=== PATIENT | male | born 1980 | race Caucasian/White ===

== ENCOUNTER → 2022-11-21 10:06 | Outpatient (CLI) | payer OTHER, SELFPAY ==
--- NOTE | 2022-11-21 10:55 | XR_ITS ---
FINAL REPORT TECHNIQUE: Chest PA & Lateral CLINICAL HISTORY: UPPER RESPITORY INFECTION FINDINGS: 2 views of the chest were performed. The heart size is normal. The mediastinum is within normal limits. There is no acute cardiopulmonary process. There are no pleural effusions. There is no pneumothorax. The bony thorax appears intact. IMPRESSION: No acute cardiopulmonary process. Reviewed, Interpreted and Dictated by Tyson Hinkle MD Transcribed by Luz Elena Hightower Authenticated and [facility]
== END ==
PROVIDERS: Visit Provider Chiropractor
DX: J06.9 Acute upper respiratory infection, unspecified (principal)
CPT/HCPCS: 71046; 94060

== ENCOUNTER 2024-02-22 18:50 | Emergency (ER) | payer OTHER, SELFPAY ==
[2024-02-22 18:52] VITALS: BP 129/73; PULSE 74; RESP 16; TEMP 37; O2SAT 96; BMI 29.5
--- NOTE | 2024-02-22 19:10 | XR_ITS ---
PROCEDURE INFORMATION: Exam: XR Chest Exam date and time: 02/22/2024 7:04 PM Age: 43 years old Clinical indication: Other: RT clavicle and ribs pain; Prior surgery; Surgery date: <1 month; Surgery type: Sleep apnea implant TECHNIQUE: Imaging protocol: Radiologic exam of the chest. Views: 2 views. COMPARISON: CR XR CHEST 2V 11/21/2022 11:01 AM FINDINGS: Lungs: In the left lung base there are interstitial densities which could reflect atelectasis versus pneumonia. Pleural spaces: Unremarkable. No pleural effusion. No pneumothorax. Heart/Mediastinum: Unremarkable. No cardiomegaly. Bones/joints: Unremarkable. Battery power implant overlying the right chest. IMPRESSION: In the left lung base there are interstitial densities which could reflect atelectasis versus pneumonia.
--- NOTE | 2024-02-22 19:12 | PC.NURSE ---
pt going to RAD
--- NOTE | 2024-02-22 20:09 | ED_ITS ---
Discharge Plan Disposition Patient Disposition: Home, Self-Care Condition: Good Prescriptions Prescriptions: New Xarelto DVT-PE Treat 30d Start 15 mg (42)- 20 mg (9) tablets,dose pack See Rx Instructions .ROUTE .COMPLEX Qty: 51 0RF Rx Instructions: take one-15 mg tablet twice daily for 21 days, then one-20 mg tablet once daily; must take with meal/food Referrals Follow up/Referrals: Ck Prabhakar MD [Staff Physician] - See instructions Yessy Garcia [Primary Care Provider] - See instructions Activity Restrictions/Add. Instructions Additional Instructions/Restrictions: You were evaluated in the emergency department today. You were diagnosed with bilateral blood clots or pulmonary emboli in your lungs. We are starting you on an anticoagulant for this. Please picker/puller the prescription and take the medication as prescribed. Please follow-up very closely with your primary care provider. They can decide whether or not they need to continue or discontinue this medication. I have also provided you with information for follow-up with cardiology, Dr. Prabhakar, if you choose to, as he does help manage blood clots. I also recommend follow up with the team that placed your implant. Please return to the ED right away for any new or worsening symptoms. Clinical Impressions Clinical Impression: Pulmonary embolism, bilateral Instructions Patient Instructions: DI for Pulmonary Embolism Discharge ED Provider: Huong Ramirez General Adult HPI General Chief complaint: Extremity Injury, Upper Stated complaint: left shoulder and rib pain, no accident Time Seen by Provider: 02/22/24 19:22 Mode of Arrival: Ambulatory Source of Information: Patient Limitations: No Limitations Description of Symptoms (Recalled from ER Triage Doc. by RN): pt states he had a transmitter placed 3 weeks ago for sleep apena. today woke up with rt side clavicle and rib pain. pt denies any accdient/ trauma History of Present Illness HPI narrative: This patient is a 43-year-old male with a history of obstructive sleep apnea presenting to the emergency department with concern that he has left-sided chest wall pain. He notes that his pain is worse under his left collarbone and his left lower chest. It is worse when he takes a deep breath. He notes has been sleeping on that side to try and offset sleeping on his right side given that he had the implant placed. No significant accident or injury noted. No significant shortness of breath. No history of blood clots, clotting disorders, calf pain or swelling, or other concerns. No fevers, cough, or congestion. It does seem to worsen slightly with reaching across his chest. Related Data Previous Rx's Medication Instructions Recorded rivaroxaban 15 mg (42)-20 mg (9) See Rx Instructions PO .COMPLEX 02/22/24 tablets in a starter pack (Xarelto #51 tabs DVT-PE Treatment 30-Day Starter) Allergies Allergy/AdvReac Type Severity Reaction Status Date / Time No Known Allergies Allergy Verified 02/22/24 19:09 [facility] Disclaimer: The information contained in this section may have been updated after the patient was seen, as this information can be updated by other users. Social History Smoking Status: Never smoker alcohol intake: never current occupational status: employed Travel in the last 8 weeks: None ROS Obtained: Yes All systems reviewed & no additional complaints except as documented Physical Exam General General appearance: alert and in no apparent distress Head Head exam: atraumatic and normocephalic Eye Eye exam: Present normal appearance, PERRL and EOMI ENT ENT exam: Present normal exam, normal oropharynx, mucous membranes moist and normal external ear exam Neck Neck exam: Present normal inspection, full ROM and trachea midline; Absent tenderness Chest Chest inspection: Present normal inspection and symmetric chest wall rise; Absent tenderness Respiratory Respiratory exam: Present normal lung sounds bilaterally; Absent respiratory distress, wheezes, stridor or accessory muscle use Cardiovascular Cardiovascular exam: Present regular rate and normal rhythm Abdominal Exam Abdominal exam: Present soft; Absent distention, tenderness or guarding Extremities Exam Extremities exam: Present normal inspection, full ROM and normal capillary refill; Absent tenderness or edema Back Exam Back exam: Present normal inspection and full ROM; Absent tenderness Neurological Exam Neurological exam: Present alert, oriented X3, CN II-XII intact and normal gait; Absent motor sensory deficit Psychiatric Psychiatric exam: Present normal affect and normal mood Skin Skin exam: Present warm and dry Medical Decision Making Medical Records Medical records reviewed: Yes I reviewed the patient's medical records. Andrew Inquiry Pt receiving controlled substance: No Vital Signs: 02/22/24 18:52 02/22/24 23:14 Temperature 98.6 F 97.8 F Temperature Source Oral Pulse Rate 78 Pulse Rate [Right] 74 Respiratory Rate 16 18 Blood Pressure 146/73 H Blood Pressure [Right Arm] 129/73 Blood Pressure Mean [Right Arm] 91 02 Sat by Pulse Oximetry 96 Oxygen Delivery Method Room Air Lab Data Lab results reviewed: Yes I reviewed the patient's lab results. Lab Results 02/22/24 20:23: WBC 8.4, RBC 5.02, Hgb 15.6, Hct 47.1, MCV 93.9, MCH 31.1, MCHC 33.1, RDW 13.5, Plt Count 342, MPV 7.2 L, Neut % (Auto) 74.6, Lymph % (Auto) 18.1, [place] % (Auto) 5.9, Eos % (Auto) 0.8, Baso % (Auto) 0.7, Neut # (Auto) 6.3, Lymph # (Auto) 1.5, [place] # (Auto) 0.5, Eos # (Auto) 0.1, Baso # (Auto) 0.1, PT 10.9, INR 1.01, APTT 29.6, D-Dimer 1.14 H, Sodium 141, Potassium 4.0, Chloride 105, Carbon Dioxide 29, Anion Gap 11.0, BUN 14, Creatinine 1.00, Estimated Creat Clear 125, Estimated GFR 82, Est GFR ( Amer) 100, Glucose 94, Calcium 9.2, Total Bilirubin 0.4, AST 35, ALT 25, Alkaline Phosphatase 74, Total Protein 7.4, Albumin 4.2, Globulin 3.2, Albumin/Globulin Ratio 1.3 02/22/24 20:23 02/22/24 20:23 Orders (Tests/Meds): ED MEDICATIONS Discontinued Medications Generic Name Dose Route Start Last Admin Trade Name Freq PRN Reason Stop Dose Admin Iopamidol 70 ml 02/22/24 21:25 02/22/24 21:26 Iopamidol-370 (76%);100ml Bottle IV 02/22/24 21:26 70 ml ONCE ONE Administration Ketorolac Tromethamine 15 mg 02/22/24 19:54 02/22/24 20:23 Ketorolac 30mg/Ml Vial IV 02/22/24 19:55 15 mg ONCE ONE Administration Rivaroxaban 1 packet 02/22/24 22:37 02/22/24 22:43 Xarelto 15mg Thp 1 Packet Lon PO 02/22/24 22:38 1 packet ONCE ONE Administration Sodium Chloride 50 ml 02/22/24 21:25 02/22/24 21:26 0.9 % Sodium Chloride 50 Ml Vial IV 02/22/24 21:26 50 ml ONCE ONE Administration Sodium Chloride 10 ml 02/22/24 21:25 02/22/24 21:26 Sodium Chloride 0.9% 10ml Syr (Rad Only) IV 02/22/24 21:26 10 ml ONCE ONE Administration ORDERS Category Date Time Status CT angio chest PE protocol Stat Cat Scan 02/22/24 21:06 Completed Chest XR 2 view (NOT portable) [XR chest 2V] Stat Exams 02/22/24 19:10 Completed POCUS Point of Care (ER Only) Stat Exams 02/22/24 22:12 Taken Activated Partial Thrombo Time Stat Lab 02/22/24 20:23 Completed CBC w/Auto Diff [Complete Blood Count Auto Diff] Stat Lab 02/22/24 20:23 Completed CMP [Comprehensive Metabolic Panel] Stat Lab 02/22/24 20:23 Completed D-Dimer Stat Lab 02/22/24 20:23 Completed Prothrombin Time INR Stat Lab 02/22/24 20:23 Completed ECG Data Tracing #1: I reviewed this ECG and interpreted as documented below: Normal sinus rhythm with a ventricular rate of [address] changes concerning for ischemia. Normal axis and intervals. ECG initial impression date: 02/22/24 ECG initial impression time: 20:55 Medical Decision Narrative: In summary, this patient is a 43-year-old male presenting to the Emergency Department for evaluation of left-sided pleuritic chest pain. Differential diagnoses considered include but are not limited to costochondritis, musculoskeletal strain/sprain, pleurisy, PE, complication of device implantation placed. Ruling out the most morbid conditions drove assessment. On exam, the patient is well-appearing. Vitals are normal on cardiac telemetry. Given the nature of his pain and the fact that he is not sleeping on that side more often than usual, I feel his pain is likely musculoskeletal. Workup included CBC, CMP, D-dimer, chest x-ray, and EKG. He was given IV Toradol. I independently interpreted x-ray prior to the radiologist read and noted atelectasis on the left without other acutely concerning abnormalities. Please see their read for final interpretation. Labs were obtained that demonstrated elevated D-dimer without other acutely concerning abnormalities. EKG obtained is reassuring. Given this, CT PE was ordered. CT PE demonstrates bilateral pulmonary emboli without evidence of right heart strain. I had an interactive discussion with the radiologist to confirm this. I performed a bedside cardiac ultrasound which again did not demonstrate any significant right heart strain. On reassessment, the patient is resting comfortably with normal vital signs on cardiac telemetry. No increased work of breathing. Given that he has normal vitals, no respiratory difficulty, and no heart strain, I feel that he is appropriate for discharge home with oral anticoagulation. He was given Xarelto starter pack here. Prescription for Xarelto was sent to the pharmacy. He was given instructions for very close follow-up as an outpatient as well as instructions for strict return precautions. He expressed understanding and agreement. The patient was discharged in stable condition after all questions were answered. Procedures Limited Ultrasound Findings:: Limited cardiac ultrasound Indication: Chest pain Identified cardiac views: [-Cardiac parasternal long axis] [-Cardiac parasternal short axis] [-Cardiac apical four-chamber] Findings: Cardiac activity present. Normal gross wall motion. No significant pericardial effusion. No evidence of right heart strain. Impression: -[From above] Images were saved to permanent archive The study was technically adequate CPT: 28032 This study was performed by me, and I personally interpreted all images/videos. Based on my clinical judgement, these images were adequate and did not necessitate further imaging. Critical Care Critical Care Time Critical Care Time: No
[2024-02-22] MEDS: KETOROLAC 30MG/ML VIAL 15 MG IV (20:23)
[2024-02-22 20:37] LABS: Basophils # 0.1 K/mm3 (0-0.2); Basophils % 0.7 % (0.1-2.0); Eosinophils # 0.1 K/mm3 (0.0-0.4); Eosinophils % 0.8 % (0.1-12.0); Hematocrit 47.1 % (42.0-52.0); Hemoglobin 15.6 g/dL (14.1-18.0); Lymphocytes # 1.5 K/mm3 (0.7-4.5); Lymphocytes % 18.1 % (10-50); Mean Corpuscular HGB Conc 33.1 g/dL (31.8-35.4); Mean Corpuscular Hemoglobin 31.1 pg (27.0-31.2); Mean Corpuscular Volume 93.9 fl (80-94); Mean Platelet Volume 7.2 fl (7.4-10.4); Monocytes # 0.5 K/mm3 (0.1-1.0); Monocytes % 5.9 % (1.7-9.3); Neutrophils # 6.3 K/mm3 (1.8-7.8); Neutrophils % 74.6 % (37.0-80.0); Platelet Count 342 K/mm3 (142-424); Red Blood Count 5.02 M/mm3 (4.60-6.20); Red Cell Distribution Width 13.5 % (11.5-17.5); White Blood Count 8.4 K/mm3 (4.8-10.8)
[2024-02-22 20:49] LABS: Alanine Aminotransferase 25 U/L (12-78); Albumin Level 4.2 g/dl (3.5-5.0); Albumin/Globulin Ratio 1.3 (1.1-1.8); Alkaline Phosphatase 74 U/L (38-126); Aspartate Amino Transferase 35 U/L (17-59); Bilirubin,Total 0.4 mg/dl (0.2-1.3); Blood Urea Nitrogen 14 mg/dl (9-20); Calcium 9.2 mg/dl (8.4-10.2); Carbon Dioxide 29 mmol/L (22.0-30.0); Chloride 105 mmol/L (98-107); Creatinine Clearance Estimated 125 mL/min (50-200); Estimated Glomerular Filt Rate 82 ml/min (>60); GFR (African American) 100 ML/MIN (>60); Globulin 3.2 g/dL (1.3-3.2); Glucose 94 mg/dl (74-100); Sodium 141 mmol/L (136-145); Total Protein,Serum 7.4 g/dl (6.3-8.2)
[2024-02-22 20:53] LABS: D-Dimer 1.14 ug/mL (0.0-0.5)
--- NOTE | 2024-02-22 20:55 | ECG_ITS ---
APPROVED REPORT Exam: Resting ECG HR:66 bpm ECG Measurements Heart Rate 66 AXES AZ 171 P 55 QRSd 85 QRS 1 QT 371 T -27 QTc 385 Conclusion SINUS RHYTHM NONSPECIFIC ST & T-WAVE ABNORMALITY BORDERLINE ECG Electronically signed by : NATALIE RITTER, 02/23/2024 00:23:04
--- NOTE | 2024-02-22 21:06 | CT_ITS ---
PROCEDURE INFORMATION: Exam: CTA Chest With Contrast Exam date and time: 02/22/2024 9:15 PM Age: 43 years old Clinical indication: Pain; Left-sided; Additional info: Pleuritic L chest pain TECHNIQUE: Imaging protocol: Computed tomographic angiography of the chest with contrast. Exam focused on the arteries. 3D rendering (Not supervised by radiologist): MIP and/or 3D reconstructed images were created by the technologist. Radiation optimization: All CT scans at this facility use at least one of these dose optimization techniques: automated exposure control; mA and/or kV adjustment per patient size (includes targeted exams where dose is matched to clinical indication); or iterative reconstruction. Contrast material: ISOUVE 370; Contrast volume: 70 ml; Contrast route: INTRAVENOUS (IV); COMPARISON: CR XR CHEST 2V 02/22/2024 7:04 PM FINDINGS: Pulmonary arteries: Positive pulmonary embolism in the left lower lobe segmental subsegmental branches, right upper lobe pulmonary artery and right lower lobe segmental subsegmental branches. Aorta: Unremarkable. No aortic aneurysm. No aortic dissection. Lungs: Unremarkable. No consolidation. No masses. Pleural spaces: Unremarkable. No pneumothorax. No pleural effusion. Heart: Unremarkable. No cardiomegaly. No pericardial effusion. Lymph nodes: Unremarkable. No enlarged lymph nodes. Bones/joints: Unremarkable. No acute fracture. Soft tissues: Unremarkable. IMPRESSION: Positive bilateral pulmonary embolism. No evidence for right heart strain.
[2024-02-22] MEDS: 0.9 % SODIUM CHLORIDE 50 ML VIAL IV (21:26)
[2024-02-22] MEDS: SODIUM CHLORIDE 0.9% 10ML SYR (RAD ONLY) 10 ML IV (21:26)
[2024-02-22] MEDS: IOPAMIDOL-370 (76%);100ML BOTTLE 70 ML IV (21:26)
[2024-02-22 22:30] LABS: Activated Partial Thrombo Time 29.6 seconds (22.8-30.6); INR 1.01 (0.9-1.1); Prothrombin Time 10.9 seconds (10.1-12.5)
[2024-02-22] MEDS: XARELTO 15MG THP 1 PACKET PAK PO (22:43)
[2024-02-22 23:14] VITALS: BP 146/73; PULSE 78; RESP 18; TEMP 36.6; O2SAT 98
== END 2024-02-22 23:15 | disposition home or self-care (01) ==
PROVIDERS: Emergency Provider Emergency Medicine; PCP Family Medicine
DX: I26.99 Other pulmonary embolism without acute cor pulmonale (principal); R07.89 Other chest pain; G47.30 Sleep apnea, unspecified; Z96.89 Presence of other specified functional implants
CPT/HCPCS: 71046; 71275; 80053; 85025; 85378; 85610; 85730; 93005; 96374; 99285; J1885; Q9967

== ENCOUNTER 2024-05-10 08:11 | Outpatient (CLI) | payer OTHER, SELFPAY ==
[2024-05-10 09:15] VITALS: PULSE 52; PULSE 58
[2024-05-10] MEDS: ALBUTEROL 0.083% 2.5 MG/3 ML NEB IH (09:15)
== END 2024-05-10 23:59 | disposition home or self-care (01) ==
LOC: RT 08:13
PROVIDERS: PCP Family Medicine; Visit Provider Chiropractor
DX: J44.0 Chronic obstructive pulmonary disease with (acute) lower respiratory infection (principal); R05.3 Chronic cough
CPT/HCPCS: 94060; 94640; J7613

== ENCOUNTER 2024-07-09 06:03 | Emergency (ER) | payer OTHER, SELFPAY ==
[2024-07-09] VITALS (10 sets, daily range): BP systolic 119–142; BP diastolic 74–95; PULSE 48–72; RESP 12–22; TEMP 36.7–36.9; O2SAT 95–98; BMI 29.5
--- NOTE | 2024-07-09 06:01 | ECG_ITS ---
APPROVED REPORT Exam: Resting ECG HR:57 bpm ECG Measurements Heart Rate 57 AXES MA 152 P 58 QRSd 85 QRS 29 QT 389 T -16 QTc 384 Conclusion SINUS BRADYCARDIA NONSPECIFIC T-WAVE ABNORMALITY T wave inversions in lead III, aVF, no reciprocal changes, no STEMI Electronically signed by : KLAUDIA JONES, 07/10/2024 04:28:44
--- NOTE | 2024-07-09 06:04 | CT_ITS ---
PROCEDURE INFORMATION: Exam: CTA Chest With Contrast Exam date and time: 07/09/2024 6:18 AM Age: 44 years old Clinical indication: Chest wall pain; Prior surgery; Surgery date: 1-6 months; Surgery type: PT unsure of surgery, just knows he had it in January & the device breathes for him; Additional info: L chest pain, off xarelto, HX pe TECHNIQUE: Imaging protocol: Computed tomographic angiography of the chest with contrast. Exam focused on the arteries. 3D rendering (Not supervised by radiologist): MIP and/or 3D reconstructed images were created by the technologist. Radiation optimization: All CT scans at this facility use at least one of these dose optimization techniques: automated exposure control; mA and/or kV adjustment per patient size (includes targeted exams where dose is matched to clinical indication); or iterative reconstruction. Contrast material: ISOVUE 370; Contrast volume: 70 ml; Contrast route: INTRAVENOUS (IV); COMPARISON: CR XR CHEST 2V 02/22/2024 7:04 PM FINDINGS: Tubes, catheters and devices: There is an electronic device in the right anterior chest wall with lead encircling the SVC. Pulmonary arteries: Normal. No pulmonary emboli. Aorta: Unremarkable. No aortic aneurysm. No aortic dissection. Lungs: Scattered calcified granulomas right lung. No focal consolidation. Pleural spaces: Unremarkable. No pneumothorax. No pleural effusion. Heart: Unremarkable. No cardiomegaly. No pericardial effusion. Coronary arteries: No coronary artery calcifications. Lymph nodes: Calcified right paratracheal lymph node. Bones/joints: Unremarkable. No acute fracture. Soft tissues: Fat density anterior to the liver extending adjacent to the right heart, likely Bochdalek's hernia. IMPRESSION: 1. No pulmonary emboli. 2. Evidence of prior granulomatous disease.
--- NOTE | 2024-07-09 06:05 | [facility].EDCP ---
Discharge Plan Disposition Chief Complaint: Chest Pain Prescriptions Prescriptions: No Action Xarelto DVT-PE Treat 30d Start 15 mg (42)- 20 mg (9) tablets,dose pack See Rx Instructions .ROUTE .COMPLEX Qty: 51 0RF Rx Instructions: take one-15 mg tablet twice daily for 21 days, then one-20 mg tablet once daily; must take with meal/food Referrals Follow up/Referrals: Provider,Referral, MD [Primary Care Provider] - See instructions Print Language Print Language: Citizen Of [place] Discharge ED Provider: Pranay Guzmán General Chief Complaint: Chest Pain Stated Complaint: chest pain Time Seen by Provider: 07/09/24 06:04 History of Present Illness HPI narrative: 44-year-old male with history of depression, pulmonary embolism presents to the ER with left-sided chest pain for the last 2 to 3 days. Patient admits he has only been partially compliant with his Xarelto stating he is only taking it between one third and one half of the time. He also states he is currently off his antidepressants because he does not need them . Patient states he does not have suicidal or homicidal ideation. Patient reports his pain in the left chest is worse with deep breathing, he does not feel short of breath, the pain does not radiate, he has no headache, dizziness, numbness, tingling, weakness, nausea, vomiting, abdominal pain, diarrhea, constipation, dysuria, hematuria, or other symptoms of being ill. He states his symptoms are similar to previous PE. Patient states he got a sleep apnea implant in the right chest and 2 weeks later developed PE. He does not have any swelling in the feet or legs, no tenderness of the calves. No recent long distance travel. Related Data Previous Rx's ?Medication ?Instructions ?Recorded rivaroxaban 15 mg (42)-20 mg (9) See Rx Instructions PO .COMPLEX 02/22/24 tablets in a starter pack (Xarelto #51 tabs DVT-PE Treatment 30-Day Starter) Allergies Allergy/AdvReac Type Severity Reaction Status Date / Time No Known Allergies Allergy Verified 02/22/24 19:09 [facility] Disclaimer: The information contained in this section may have been updated after the patient was seen, as this information can be updated by other users. Social History (Updated 02/23/24 @ 00:13 by Huong Ramirez DO) Smoking Status: Never smoker alcohol intake: never current occupational status: employed Travel in the last 8 weeks: None ROS Obtained: Yes Systems reviewed as appropriate & no additional complaints except as documented ROS per HPI Physical Exam General General appearance: alert and in no apparent distress Head Head exam: atraumatic and normocephalic Eye Eye exam: Present PERRL and EOMI ENT ENT exam: Present mucous membranes moist Neck Neck exam: Present normal inspection and full ROM Chest Chest inspection: Present symmetric chest wall rise; Absent tenderness Respiratory Respiratory exam: Present normal lung sounds bilaterally; Absent respiratory distress, wheezes or stridor Cardiovascular Cardiovascular exam: Present regular rate and normal rhythm Abdominal Exam Abdominal exam: Present soft; Absent distention or tenderness Extremities Exam Extremities exam: Present full ROM; Absent edema or calf tenderness Neurological Exam Neurological exam: Present alert and oriented X3; Absent motor sensory deficit Psychiatric Psychiatric exam: Present normal affect and normal mood; Absent homicidal ideation or suicidal ideation Skin Skin exam: Present warm and dry HEART Score HEART Score HEART Score assessment performed?: No Critical Care Critical Care Time Critical Care Time: No Medical Decision Making Medical Records Medical records reviewed: Yes I reviewed the patient's medical records. MR Comment: Review of CTA PE from January patient had bilateral pulmonary emboli, segmental and subsegmental. Andrew Inquiry Pt receiving controlled substance: No Vital Signs Vital Signs: 07/09/24 06:04 07/09/24 06:07 07/09/24 06:10 Temperature 98.5 F Temperature Source Oral Pulse Rate 59 L 57 L Pulse Rate [Right Brachial] 57 L Respiratory Rate 16 22 Blood Pressure Blood Pressure [Right Arm] 141/85 H Blood Pressure Mean [Right Arm] 103 Blood Pressure Source [Right Arm] Automatic Cuff 02 Sat by Pulse Oximetry 96 96 Oxygen Delivery Method Room Air 07/09/24 06:16 07/09/24 06:34 Temperature Temperature Source Pulse Rate 69 72 Pulse Rate [Right Brachial] Respiratory Rate 12 17 Blood Pressure 119/74 133/86 Blood Pressure [Right Arm] Blood Pressure Mean [Right Arm] Blood Pressure Source [Right Arm] 02 Sat by Pulse Oximetry 98 96 Oxygen Delivery Method Lab Data Labs: Lab Results 07/09/24 06:07: WBC 9.2, RBC 5.40, Hgb 16.6, Hct 48.9, MCV 90.6, MCH 30.8, MCHC 34.0, RDW 13.5, Plt Count 365, MPV 7.1 L, Neut % (Auto) 62.7, Lymph % (Auto) 28.4, [place] % (Auto) 7.0, Eos % (Auto) 1.1, Baso % (Auto) 0.8, Neut # (Auto) 5.8, Lymph # (Auto) 2.6, [place] # (Auto) 0.6, Eos # (Auto) 0.1, Baso # (Auto) 0.1, PT 10.9, INR 0.97, APTT 26.9 07/09/24 06:07 Response Orders (Tests/Meds): ED MEDICATIONS Generic Name Dose Route Start Last Admin Trade Name Freq PRN Reason Stop Dose Admin Sodium Chloride 10 ml 07/09/24 06:35 07/09/24 06:37 Sodium Chloride 0.9% 10ml Syr (Rad Only) IV 08/08/24 06:34 10 ml NEEDED PRN Administration Maintain IV Site Discontinued Medications Generic Name Dose Route Start Last Admin Trade Name Freq PRN Reason Stop Dose Admin Iopamidol 70 ml 07/09/24 06:35 07/09/24 06:37 Iopamidol-370 (76%);100ml Bottle IV 07/09/24 06:36 70 ml ONCE ONE Administration Sodium Chloride 50 ml 07/09/24 06:35 07/09/24 06:36 0.9 % Sodium Chloride 50 Ml Vial IV 07/09/24 06:36 50 ml ONCE ONE Administration ORDERS Category Date Time Status CT angio chest PE protocol Stat Cat Scan 07/09/24 06:04 Taken CBC w/Auto Diff [Complete Blood Count Auto Diff] Stat Lab 07/09/24 06:07 Completed CMP [Comprehensive Metabolic Panel] Stat Lab 07/09/24 06:07 Received HIV (1&2) Antibody Rapid Stat Lab 07/09/24 06:07 Received Hep C Ab with Reflex to RNA Stat Lab 07/09/24 06:07 Received PT INR [Prothrombin Time INR] Stat Lab 07/09/24 06:07 Completed PTT [Activated Partial Thrombo Time] Stat Lab 07/09/24 06:07 Completed Trop I [Troponin I] Stat Lab 07/09/24 06:07 Received Troponin I Q3H Lab 07/09/24 09:15 Ordered Troponin I Q3H Lab 07/09/24 12:15 Ordered MDM Narrative Medical Decision Narrative: In summary, this 44-year-old male presents to the emergency department today with left-sided chest pain without radiation and similar to previous PE in the setting of patient having PEs in the past and being noncompliant with his Xarelto which is a comorbidity of current condition. On initial evaluation patient is hemodynamically stable, afebrile, saturating well on room air, chest pain is not reproducible with palpation and overall cardiopulmonary exam is reassuring with no leg swelling, edema, or calf swelling or tenderness. Differential diagnosis includes but is not limited to ACS, PE, electrolyte abnormality, I considered esophageal spasm, pneumothorax, pneumonia. Obviously high suspicion for PE since he is noncompliant with his anticoagulation and has history of bilateral segmental and subsegmental PE.. Based on these concerns, I ordered serum labs, CT imaging, cardiac workup. ECG personally interpreted demonstrates sinus bradycardia, rate 57, normal axis, normal IA and QTc, patient does have isolated T wave inversions in leads III and aVF, nonspecific, no STEMI. I reviewed ECG from patient's previous visit to our ER when he had PE and he had Q waves in lead III as well as T wave inversions in lead III and aVF. He does not have Q waves in lead III at this time. Patient received [] for treatment. Labs personally reviewed demonstrate no leukocytosis or anemia, normal PT/INR and APTT. On personal interpretation of CTA PE, patient does not have saddle PE, however I believe I am appreciating filling defects in segmental areas of the bilateral lungs with some distal filling. Radiology read pending at the time of physician handoff. Patient handed off to Dr. Perez at physician shift change for further management and disposition.
--- NOTE | 2024-07-09 06:22 | PC.NURSE ---
Pt to xray via wheelchair
[2024-07-09 06:27] LABS: Basophils # 0.1 K/mm3 (0-0.2); Basophils % 0.8 % (0.1-2.0); Eosinophils # 0.1 K/mm3 (0.0-0.4); Eosinophils % 1.1 % (0.1-12.0); Hematocrit 48.9 % (42.0-52.0); Hemoglobin 16.6 g/dL (14.1-18.0); Lymphocytes # 2.6 K/mm3 (0.7-4.5); Lymphocytes % 28.4 % (10-50); Mean Corpuscular Hemoglobin 30.8 pg (27.0-31.2); Mean Corpuscular Volume 90.6 fl (80-94); Mean Platelet Volume 7.1 fl (7.4-10.4); Monocytes # 0.6 K/mm3 (0.1-1.0); Neutrophils # 5.8 K/mm3 (1.8-7.8); Neutrophils % 62.7 % (37.0-80.0); Platelet Count 365 K/mm3 (142-424); Red Cell Distribution Width 13.5 % (11.5-17.5); White Blood Count 9.2 K/mm3 (4.8-10.8)
[2024-07-09 06:33] LABS: Activated Partial Thrombo Time 26.9 seconds (22.8-30.6); INR 0.97 (0.9-1.1); Prothrombin Time 10.9 seconds (10.1-12.5)
[2024-07-09] MEDS: 0.9 % SODIUM CHLORIDE 50 ML VIAL IV (06:36)
[2024-07-09] MEDS: SODIUM CHLORIDE 0.9% 10ML SYR (RAD ONLY) 10 ML IV (06:37)
[2024-07-09] MEDS: IOPAMIDOL-370 (76%);100ML BOTTLE 70 ML IV (06:37)
--- NOTE | 2024-07-09 07:05 | [facility].EDCP ---
Discharge Plan Disposition Patient Disposition: Home, Self-Care Condition: Good Chief Complaint: Chest Pain Prescriptions Prescriptions: No Action Xarelto DVT-PE Treat 30d Start 15 mg (42)- 20 mg (9) tablets,dose pack See Rx Instructions .ROUTE .COMPLEX Qty: 51 0RF Rx Instructions: take one-15 mg tablet twice daily for 21 days, then one-20 mg tablet once daily; must take with meal/food Referrals Follow up/Referrals: Provider,Referral, MD [Primary Care Provider] - See instructions Clinical Impressions Clinical Impression: Chest pain Instructions Patient Instructions: DI for Chronic Pain -- Adult Print Language Print Language: Luxembourgish Discharge ED Provider: Dawna Perez General Chief Complaint: Chest Pain Stated Complaint: chest pain Time Seen by Provider: 07/09/24 06:04 Mode of Arrival: Ambulatory Source of Information: Patient Limitations: No Limitations Description of Symptoms (Recalled from ER Triage Doc. by RN): Pt states he has hx of PE in January Not taking Xarelto as prescribed. Started having chest pain for lat 2 days in L upper chest. Pain 3 on 1-10 scale. Related Data Previous Rx's ?Medication ?Instructions ?Recorded rivaroxaban 15 mg (42)-20 mg (9) See Rx Instructions PO .COMPLEX 02/22/24 tablets in a starter pack (Xarelto #51 tabs DVT-PE Treatment 30-Day Starter) Allergies Allergy/AdvReac Type Severity Reaction Status Date / Time No Known Allergies Allergy Verified 02/22/24 19:09 [facility] Disclaimer: The information contained in this section may have been updated after the patient was seen, as this information can be updated by other users. Social History (Updated 02/23/24 @ 00:13 by Huong Ramirez DO) Smoking Status: Never smoker alcohol intake: never current occupational status: employed Travel in the last 8 weeks: None ROS Obtained: Yes All systems reviewed & no additional complaints except as documented Physical Exam General General appearance: alert and in no apparent distress Respiratory Respiratory exam: Present normal lung sounds bilaterally Cardiovascular Cardiovascular exam: Present regular rate and normal rhythm Neurological Exam Neurological exam: Present alert HEART Score HEART Score HEART Score assessment performed?: Yes History (anamnesis): Slightly suspicious ECG: Non-specific disturbance Age: <45 years Risk factors: No known risk factors Troponin: </= normal limit HEART Score: 1 Critical Care Critical Care Time Critical Care Time: No Medical Decision Making Andrew Inquiry Pt receiving controlled substance: No Vital Signs Vital Signs: 07/09/24 06:04 07/09/24 06:07 07/09/24 06:10 Temperature 98.5 F Temperature Source Oral Pulse Rate 59 L 57 L Pulse Rate [Right Brachial] 57 L Respiratory Rate 16 22 Blood Pressure Blood Pressure [Right Arm] 141/85 H Blood Pressure Mean [Right Arm] 103 Blood Pressure Source [Right Arm] Automatic Cuff 02 Sat by Pulse Oximetry 96 96 Oxygen Delivery Method Room Air 07/09/24 06:16 07/09/24 06:34 07/09/24 07:00 Temperature Temperature Source Pulse Rate 69 72 66 Pulse Rate [Right Brachial] Respiratory Rate 12 17 15 Blood Pressure 119/74 133/86 136/85 Blood Pressure [Right Arm] Blood Pressure Mean [Right Arm] Blood Pressure Source [Right Arm] 02 Sat by Pulse Oximetry 98 96 95 Oxygen Delivery Method Room Air 07/09/24 07:30 07/09/24 08:00 07/09/24 08:30 Temperature Temperature Source Pulse Rate 62 59 L 54 L Pulse Rate [Right Brachial] Respiratory Rate 18 12 13 Blood Pressure 142/95 H 122/76 134/89 Blood Pressure [Right Arm] Blood Pressure Mean [Right Arm] Blood Pressure Source [Right Arm] 02 Sat by Pulse Oximetry 96 98 96 Oxygen Delivery Method Room Air Room Air Room Air Lab Data Labs: Lab Results 07/09/24 06:07: WBC 9.2, RBC 5.40, Hgb 16.6, Hct 48.9, MCV 90.6, MCH 30.8, MCHC 34.0, RDW 13.5, Plt Count 365, MPV 7.1 L, Neut % (Auto) 62.7, Lymph % (Auto) 28.4, [place] % (Auto) 7.0, Eos % (Auto) 1.1, Baso % (Auto) 0.8, Neut # (Auto) 5.8, Lymph # (Auto) 2.6, [place] # (Auto) 0.6, Eos # (Auto) 0.1, Baso # (Auto) 0.1, PT 10.9, INR 0.97, APTT 26.9, Sodium 140, Potassium 3.8, Chloride 106, Carbon Dioxide 24, Anion Gap 13.8, BUN 15, Creatinine 1.10, Estimated Creat Clear 112, Estimated GFR 73, Est GFR ( Amer) 89, Glucose 116 H, Calcium 8.3 L, Total Bilirubin 0.5, AST 43, ALT 46, Alkaline Phosphatase 53, Troponin I < 0.01, Total Protein 7.2, Albumin 4.2, Globulin 3.0, Albumin/Globulin Ratio 1.4 07/09/24 06:07 07/09/24 06:07 Response Orders (Tests/Meds): ED MEDICATIONS Generic Name Dose Route Start Last Admin Trade Name Freq PRN Reason Stop Dose Admin Sodium Chloride 10 ml 07/09/24 06:35 07/09/24 06:37 Sodium Chloride 0.9% 10ml Syr (Rad Only) IV 08/08/24 06:34 10 ml NEEDED PRN Administration Maintain IV Site Discontinued Medications Generic Name Dose Route Start Last Admin Trade Name Freq PRN Reason Stop Dose Admin Iopamidol 70 ml 07/09/24 06:35 07/09/24 06:37 Iopamidol-370 (76%);100ml Bottle IV 07/09/24 06:36 70 ml ONCE ONE Administration Sodium Chloride 50 ml 07/09/24 06:35 07/09/24 06:36 0.9 % Sodium Chloride 50 Ml Vial IV 07/09/24 06:36 50 ml ONCE ONE Administration ORDERS Category Date Time Status CT angio chest PE protocol Stat Cat Scan 07/09/24 06:04 Completed CBC w/Auto Diff [Complete Blood Count Auto Diff] Stat Lab 07/09/24 06:07 Completed CMP [Comprehensive Metabolic Panel] Stat Lab 07/09/24 06:07 Completed HIV (1&2) Antibody Rapid Stat Lab 07/09/24 06:07 Received Hep C Ab with Reflex to RNA Stat Lab 07/09/24 06:07 Received PT INR [Prothrombin Time INR] Stat Lab 07/09/24 06:07 Completed PTT [Activated Partial Thrombo Time] Stat Lab 07/09/24 06:07 Completed Trop I [Troponin I] Stat Lab 07/09/24 06:07 Completed Troponin I Q3H Lab 07/09/24 09:15 Ordered Troponin I Q3H Lab 07/09/24 12:15 Ordered MDM Narrative Medical Decision Narrative: At [facility] from Dr. Guzmán pending CTPE read, chemistry, troponin, and HEART score calculation. Chemistry non actionable with mild hypocalcemia. Troponin normal. CTPE without PE. On repeat evaluation pt has resolution in symptoms. Notes he has had significant caffeine consumption recently. Recommended decreasing caffeine use which likely is contributing to his symptoms and taking xarelto as prescribed.
--- NOTE | 2024-07-09 07:34 | PC.NURSE ---
I rounded on the pt, he states his pain is 3/10. pt states he does not feel like he needs anything for the pain. no new complaints. call sanchez in reach.
--- NOTE | 2024-07-09 08:03 | PC.NURSE ---
rounded on pt at this time. no needs voiced. call light within reach, vital signs within normal limits.
[2024-07-09 08:19] LABS: Albumin Level 4.2 g/dl (3.5-5.0); Chloride 106 mmol/L (98-107); Potassium 3.8 mmoL/L (3.5-5.1); Sodium 140 mmol/L (136-145)
[2024-07-09 08:22] LABS: Alanine Aminotransferase 46 U/L (12-78); Albumin/Globulin Ratio 1.4 (1.1-1.8); Alkaline Phosphatase 53 U/L (38-126); Aspartate Amino Transferase 43 U/L (17-59); Bilirubin,Total 0.5 mg/dl (0.2-1.3); Blood Urea Nitrogen 15 mg/dl (9-20); Creatinine Clearance Estimated 112 mL/min (50-200); Estimated Glomerular Filt Rate 73 ml/min (>60); GFR (African American) 89 ML/MIN (>60); Total Protein,Serum 7.2 g/dl (6.3-8.2)
[2024-07-09 08:23] LABS: Calcium 8.3 mg/dl (8.4-10.2); Glucose 116 mg/dl (74-100)
[2024-07-09 08:42] LABS: Troponin I < 0.01 ng/ml (0.00-0.034)
[2024-07-09 08:46] LABS: Anion Gap 13.8 mEq/L (5-15); Carbon Dioxide 24 mmol/L (22.0-30.0)
[2024-07-09 09:46] LABS: HIV (1&2) Antibody Rapid NONREACTIVE (NONREACTIVE)
[2024-07-10 08:39] LABS: HCV Ab Non Reactive (Non Reactive)
== END 2024-07-09 08:57 | disposition home or self-care (01) ==
PROVIDERS: Emergency Medicine; Emergency Provider Student in an Organized Health Care Education/Training Program
DX: R07.9 Chest pain, unspecified (principal); Z91.148 Patient's other noncompliance with medication regimen for other reason
CPT/HCPCS: 71275; 80053; 84484; 85025; 85610; 85730; 86803; 87389; 93005; 99285; Q9967